=== PATIENT | female | born 1985 ===

== ENCOUNTER 2017-03-09 09:12 | Emergency (ER) | payer BC ==
--- NOTE | 2017-03-09 09:32 | UC ---
Eye Complaint HPI - HPI Summary HPI Summary: The patient comes in today for: 1. Both eye pain, and "goopy discharge." Onset: Yesterday. Palliative/provocative: Nothing. Quality: Ache pain. Region: Both eyes. Severity: 5/10 Time: Constant. Associated symptoms: Vision: Blurry which comes and goes depending on discharge. Previous eye disease: None. Patient used "glitter hairspray" yesterday, but had not problems at the time of using it. * - History of Current Complaint Chief Complaint: UCEye Stated Complaint: EYE COMPLAINT Time Seen by Provider: 03/09/17 09:25 Hx Obtained From: Patient Hx Last Menstrual Period: 03/07/17 - Allergies/Home Medications Allergies/Adverse Reactions: Allergies Allergy/AdvReac Type Severity Reaction Status Date / Time No Known Allergies Allergy Verified 03/09/17 09:23 Home Medications: Home Medications Norgestimate-Eth Estradiol(NF) [Ortho Tri-Cyclen (NF)] 1 tab PO DAILY 03/09/17 [ History Confirmed 03/09/17] PMH/Surg Hx/FS Hx/Imm Hx Previously Healthy: No - Family planning/BCP - Surgical History Surgical History: Yes Surgery Procedure, Year, and Place: c-sections x 2 - Family History Known Family History: Positive: Diabetes Negative: Hypertension - Social History Occupation: Employed Full-time Alcohol Use: Occasionally Substance Use Type: None Smoking Status (MU): Never Smoked Tobacco Review of Systems Constitutional: Negative Skin: Negative Eyes: Blurred Vision, Drainage, Eye Redness ENT: Negative Respiratory: Negative Cardiovascular: Negative Gastrointestinal: Negative Genitourinary: Negative All Other Systems Reviewed And Are Negative: Yes Physical Exam Triage Information Reviewed: Yes Appearance: Well-Appearing, No Pain Distress, Well-Nourished Vital Signs: Initial Vital Signs Temp 99.1 F 03/09/17 09:18 Pulse 91 03/09/17 09:18 Resp 14 03/09/17 09:18 BP 157/91 03/09/17 09:18 Pulse Ox 100 03/09/17 09:18 Vital Signs Reviewed: Yes Eyes: Positive: Conjunctiva Inflamed - Bilateral eye redness with limbal clearing. There is a yellow crusting of the eye lashes, but no opague fluid in the gutter of the lower lid. ENT: Positive: Hearing grossly normal. Negative: Pharyngeal erythema, Nasal congestion, Nasal drainage, TM bulging, TM dull, TM red, Tonsillar swelling, Tonsillar exudate Dental: Negative: Gross Decay/Caries @, Dental Fracture @ Neck: Positive: Supple, Nontender, No Lymphadenopathy. Negative: Nuchal Rigidity Respiratory: Positive: Chest non-tender, Lungs clear, No respiratory distress, No accessory muscle use. Negative: Crackles, Wheezing Cardiovascular: Positive: RRR, No Murmur Abdomen Description: Positive: Nontender, No Organomegaly, Soft. Negative: Distended, Guarding Musculoskeletal: Positive: Strength Intact, ROM Intact, No Edema Neurological: Positive: Alert, Muscle Tone Normal Psychological: Positive: Age Appropriate Behavior, Consolable Skin: Negative: rashes, breakdown Eye Complaint Course/Dx - Differential Dx/Diagnosis Differential Diagnosis/HQI/PQRI: Conjunctivitis Provider Diagnoses: Bilateral conjunctivitis Discharge - Discharge Plan Condition: Stable Disposition: HOME Patient Education Materials: Conjunctivitis (ED) Additional Instructions: Please see your primary care provider this coming Saturday to see how well you are doing. If you get worse between now and then, please be seen sooner by us or the ER.
== END 2017-03-09 09:40 | disposition home or self-care (01) ==
LOC: UCEAST 09:12
DX: H10.9 Unspecified conjunctivitis (principal)
CPT/HCPCS: 99202; G0463